=== PATIENT | female | born 1940 | race Caucasian/White ===

== ENCOUNTER 2020-11-29 12:57 | Emergency (ER) | payer MEDICARE, SELFPAY ==
--- NOTE | ~2020-11-29 | XR_ITS ---
EXAMINATION: XR KNEE, LEFT CLINICAL INFORMATION: Left knee pain. COMPARISON: None TECHNIQUE: AP, oblique, contralateral oblique, crosstable lateral radiographs of the left knee. FINDINGS: Medial compartment demonstrates mild joint space narrowing and subchondral sclerosis of the tibia and femoral condyle. The lateral compartment demonstrates mild osteophytosis of the femoral condyle. The patellofemoral compartment demonstrates mild osteophytosis. No joint effusion is visualized. No discrete popliteal fossa fluid collection is noted. No fractures or suspicious osseous lesions visualized. XR/XR knee LT 3V IMPRESSION: 1. Mild - moderate tricompartmental osteoarthritis.
--- NOTE | ~2020-11-29 | XR_ITS ---
EXAMINATION: XR HIP WITH AP PELVIS, LEFT XR FEMUR, LEFT XR TIBIA AND FIBULA, LEFT CLINICAL INFORMATION: Pain in the left lower extremity. COMPARISON: Left knee x-ray performed earlier on the same day. TECHNIQUE: AP view of the pelvis and AP and frog lateral views of the left hip. AP and lateral views of the left femur. AP and lateral views of the left tibia and fibula. FINDINGS: The left hip joint, knee joint and ankle joint alignments are maintained. There is no evidence of suspicious lytic or blastic osseous lesion. Normal osseous mineralization. Right hip joint alignment is maintained. Mild osteoarthritic changes at the left hip. [id number] osteoarthritic changes are noted at the right hip joint with narrowing of the joint space mild subarticular sclerosis and marginal osteophytic ranges at the lateral margin of the acetabulum. There is probable mild subarticular cystic changes seen in the right acetabulum laterally. There is mild deformity of the left side of the pubic symphysis, recommend correlation with history of prior trauma in the region. Symphysis previously intact. Limited evaluation of the sacroiliac joints is unremarkable. Degenerative changes are noted in the lower lumbar spine. Mild osteoarthritic changes in the left knee are better seen on the dedicated left knee radiographs performed earlier on the same day. No evidence of suprapatellar joint effusion. Faint vascular calcifications are noted. No significant degenerative or erosive changes are noted at the right ankle joint. XR/XR tibia fibula LT 2V IMPRESSION: 1. Osteoarthritic changes of the bilateral hips, right greater than left. 2. Mild osteoarthritic changes in the right knee, greater in the medial compartment. 3. No significant degenerative changes are noted in the right ankle. 4. No acute or suspicious osseous abnormality is noted in the pelvis, left hip, left femur and left tibia and fibula.
--- NOTE | ~2020-11-29 | US_ITS ---
EXAMINATION: US VENOUS ULTRASOUND WITH DOPPLER LOWER EXTREMITY, LEFT CLINICAL INFORMATION: Posterior left leg pain COMPARISON: None TECHNIQUE: Ultrasound of the deep veins is performed from the hip to the calf with compression sonography and color and pulse Doppler assessment. Spectral analysis with color-flow imaging is performed. FINDINGS: There is normal venous compression and respiratory variation and augmented flow. The visualized common femoral vein, superficial femoral vein, profunda femoral vein, and the trifurcation region shows no evidence of deep venous thrombosis. The popliteal vein demonstrated respiratory variation and augmented flow, however the patient could not tolerate the pressure needed to compress the vein. There is no significant popliteal fossa cyst. If the patient's symptoms persist, followup ultrasound in 5 days 7 days might be of value to exclude proximal propagation from a non-visualized calf vein. US/US venous duplex LE LT IMPRESSION: No DVT demonstrated in the left lower extremity. The patient could not tolerate compression of the popliteal vein, however color Doppler and grayscale ultrasound did not demonstrate any evidence of clot and respiratory variation was preserved. This argues strongly against the presence of DVT at the popliteal vein.
[2020-11-29 13:38] VITALS: BP 162/97; PULSE 93; RESP 18; TEMP 36.5; O2SAT 97; BMI 31.8
--- NOTE | 2020-11-29 14:09 | ED.EXTPRO ---
HPI - Extremity Problem General Chief complaint: Extremity Problem Stated complaint: cant bear weight on legs Time Seen by Provider: 11/29/20 14:09 History of Present Illness HPI Narrative: Patient complains of left leg pain worst in the knee and the back of the knee as well which started today when she attempted to sit down in a chair and felt a sudden sharp pain She has been using crutches for a couple of days as her knee and leg have been hurting but not to this extent, no numbness no weakness no tingling Related Data Previous Rx's Medication Instructions Recorded acetaminophen 1,000 mg PO QID PRN #30 tab 11/29/20 oxycodone 2.5 mg PO Q6H PRN #10 tab 11/29/20 Allergies Allergy/AdvReac Type Severity Reaction Status Date / Time No Known Allergies Allergy Unverified 03/05/20 15:53 [No Known Allergies*] Review of Systems Review of Systems: Positive for left leg pain Negatives are no fever or chills no dizziness no weakness no fainting no feeling faint no headache no neck pain no back pain no numbness weakness or tingling no skin rash no chest pain no shortness of breath Yes all other systems are reviewed and are negative PMFSH Past Medical History Source: nursing notes reviewed Medical History (Updated 11/30/20 @ 00:01 by Background Mel) Diabetes GERD (gastroesophageal reflux disease) HTN (hypertension) Hypothyroid Physical Exam Vital Signs: Vital Signs: Last Vital Signs Temp 99.0 F 11/29/20 17:13 Pulse 78 11/29/20 17:13 Resp 16 11/29/20 17:13 BP 153/80 H 11/29/20 17:13 Pulse Ox 97 11/29/20 17:13 Body Mass Index 31.8 General appearance no acute distress Head is normocephalic atraumatic Neck is supple Respiratory no distress Chest clear to auscultation bilaterally Chest wall nontender no pleuritic pain Heart no murmur Abdomen soft nontender Extremities the left leg was normal in color no swelling no redness no warmth no wound The knee had posterior tenderness and bilateral joint tenderness, there was no effusion there was no redness no warmth There was also tenderness without redness or swelling behind the knee and in the calf The leg was neurovascular intact Skin no rashes Neuro no gross motor sensory deficits Course Course Course Narrative: Left knee x-ray showed osteoarthritis, hip x-ray showed bilateral hip osteoarthritis, no evidence of malignancy or fracture Ultrasound did not show any clot and patient was discharged to follow with orthopedist Discharge Plan Discharge Clinical Impression: Left knee sprain Patient Disposition: Home, Self-Care Additional Instructions: You can use Tylenol and if really needed you can try the oxycodone which is a narcotic which can cause dizziness and drowsiness Follow with primary doctor and orthopedist Return any time any concerns Ultrasound done today did not reveal any blood clot, x-rays done today did not reveal any broken bone or any emergent finding Prescriptions: New oxycodone 5 mg tablet 2.5 mg PO Q6H PRN (Reason: pain) Qty: 10 RF: 0 acetaminophen 500 mg tablet 1,000 mg PO QID PRN (Reason: pain) Qty: 30 RF: 0 Referrals: Jonatan Don MD [Physician] - 2 days (Left knee injury) Interventions: ED Discharge Assessment Last Done: 11/29/20 18:44 Discharge Date/Time: 11/29/20 18:45
--- NOTE | 2020-11-29 14:35 | PC.NURSE ---
PT MOVED FROM A RECLINER TO A STRETCHER. PT UNABLE TO BEAR ANY WEIGHT ON LEFT LEG DUE TO PAIN. PT ASSISTED BY 2 RNS AND REPOSITIONED IN THE BED.
--- NOTE | 2020-11-29 15:46 | PC.NURSE ---
pt assisted with bedpan, voided 300 ml dark yellow urine.
[2020-11-29 17:13] VITALS: BP 153/80; PULSE 78; RESP 16; TEMP 37.2; O2SAT 97
--- NOTE | 2020-11-29 17:55 | PC.NURSE ---
KNEE SPLINT APPLIED TO L LEG.
== END 2020-11-29 18:45 | disposition home or self-care (01) ==
PROVIDERS: Emergency Provider Emergency Medicine Emergency Medical Services; PCP Internal Medicine
DX: S93.402A Sprain of unspecified ligament of left ankle, initial encounter (principal); M79.605 Pain in left leg; M16.0 Bilateral primary osteoarthritis of hip; M17.12 Unilateral primary osteoarthritis, left knee; E11.9 Type 2 diabetes mellitus without complications; I10 Essential (primary) hypertension; X58.XXXA Exposure to other specified factors, initial encounter; Y93.9 Activity, unspecified; Y92.9 Unspecified place or not applicable; Y99.9 Unspecified external cause status
CPT/HCPCS: 73502; 73552; 73562; 73590; 93971; 99284

== ENCOUNTER 2021-01-19 11:00 | Outpatient (RCR) | payer MEDICARE, SELFPAY | END 2021-03-17 10:28 | disposition home or self-care (01) | LOC: HO.PT 11:00 | PROVIDERS: PCP Internal Medicine; Visit Provider Physician Assistant | DX: M54.5 Low back pain (principal) | CPT/HCPCS: 97110; 97161 ==

== ENCOUNTER 2021-01-19 12:08 | Emergency (ER) | payer MEDICARE, SELFPAY ==
--- NOTE | ~2021-01-19 | XR_ITS ---
EXAMINATION: XR CHEST CLINICAL INFORMATION: Dizziness COMPARISON: Chest radiographs 01/29/2017, 06/15/2006 TECHNIQUE: Portable upright AP view of the chest was obtained. FINDINGS: Some fine linear scarring is seen at both lung bases similar to prior studies. There is also some fine clothing/linen artifact overlying the upper zones. There is no pneumothorax, airspace consolidation, or effusion. The heart is normal in size. The vascularity is normal. The hilar and mediastinal contours and visualized bony structures are unremarkable. XR/XR chest 1V IMPRESSION: Old fine bibasilar linear scarring. No acute intrathoracic disease.
--- NOTE | ~2021-01-19 | CT_ITS ---
EXAMINATION: CT ANGIOGRAM OF THE HEAD CT ANGIOGRAM OF THE NECK CLINICAL INFORMATION: Evaluate aneurysm seen on CT scan. COMPARISON: CT scan of the head earlier 09/05/2020. TECHNIQUE: Test bolus series followed by intravenous administration 70 mL of Omnipaque 350. Helical imaging was performed in the axial plane from the mediastinum to the skull vertex. A delayed CT scan of the head was obtained. The degree of stenosis is based off NASCET criteria. The data was processed at the ambulatory technologist workstation for generation of MIP images. Three-dimensional volume rendered reformatted images were also generated at an offline 3-D workstation. This CT examination was performed using dose optimization techniques as appropriate, variously including the following: *Automated exposure control *Adjustment of mA and/or kV according to patient size (this includes techniques or standardized protocols for targeted exams where dose is matched to indication/reason for exam; i.e. extremities or head) *Use of iterative reconstruction technique DLP: 1387 mGy-cm. FINDINGS: CT Head: There is a moderately intensely enhancing mass in the sellar region which extends into the suprasellar area which measures 1.2 x 1.2 x 1.7 cm in oblique AP, transverse and craniocaudal dimensions. There is equivocal impingement on the optic chiasm. It is most consistent with a pituitary adenoma. There is no evidence of acute intracranial hemorrhage or territorial infarction. No other abnormal mass-effect or midline shift is seen. Lucio to white matter differentiation is well preserved. No extra-axial fluid collections are identified. The ventricles and sulci are slightly commensurately prominent consistent with mild diffuse volume loss. There are scattered areas of low attenuation in the periventricular and subcortical white matter which are most consistent with chronic microvascular ischemic changes. There are no acute osseous findings. There is extensive hyperostosis frontalis interna. There have been bilateral lens extractions. There is moderate fluid at the right mastoid tip. The paranasal sinuses are well-aerated. CTA Neck: There is a classic configuration of the arch of the aorta. The great vessels of the neck are widely patent. There are atheromatous calcifications of the origin of the right subclavian artery, subclavian arteries are patent bilaterally. The common carotid arteries have normal caliber, but are slightly tortuous with a retropharyngeal course. There are atheromatous calcifications of bilateral the carotid bifurcations without significant stenosis. The internal carotid arteries in the neck bilaterally have uniform and normal caliber. The origins of both vertebral arteries are well seen and appear normal. Both vertebral arteries are widely patent and demonstrate good opacification throughout their cervical course. The vertebral arteries are codominant. Nonvascular: The visualized lung dxion appear clear. There are spondylitic and facet arthropathic changes in the cervical spine. There is no cervical lymphadenopathy. The thyroid gland appears normal. CTA Head: There are atheromatous calcifications of the cavernous internal carotid arteries, but the vessels are patent. The A1 segment of the left anterior cerebral artery is markedly thinner compared to the right but has uniform caliber. The A1 segment on the right appears normal. The A2 segments of both anterior cerebral arteries are patent. 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 The middle cerebral arteries bilaterally demonstrate normal caliber with no evidence of focal stenosis, aneurysm or vascular malformation. There is normal arborization of the middle cerebral artery branches. In the posterior circulation, the vertebral arteries are codominant. The vertebral arteries intradurally have normal caliber. The basilar artery appears normal. The posterior cerebral arteries have normal caliber. The venous sinuses opacify normally. CT/CT angio head neck IMPRESSION: CT head and neck: 1. There are no acute bleeds or infarcts. 2. There is a sellar and suprasellar mass as described above which is most consistent with pituitary adenoma. Recommend MRI scan of the brain with pituitary sequences for further assessment. 3. There is mild diffuse volume loss and there are chronic microvascular ischemic changes. CTA head and neck: 1. 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 2. The A1 segment of the left anterior cerebral artery is thinner compared to the right, likely a normal variant. 3. The posterior fossa vasculature appears normal. This critical result was discussed with JORGE Rosario by telephone on 01/19/2021 at 6:13 PM and it was ascertained that the content and urgency of the report was understood at the time of direct communication.
--- NOTE | ~2021-01-19 | CT_ITS ---
EXAMINATION: CT HEAD WITHOUT CONTRAST CLINICAL INFORMATION: Dizziness and hypertension COMPARISON: None TECHNIQUE: Contiguous axial imaging was performed from the skull base to vertex without intravenous administration of contrast. This CT examination was performed using dose optimization techniques as appropriate, variously including the following: *Automated exposure control *Adjustment of mA and/or kV according to patient size (this includes techniques or standardized protocols for targeted exams where dose is matched to indication/reason for exam; i.e. extremities or head) *Use of iterative reconstruction technique DLP: 614 mGy-cm FINDINGS: There is no evidence of an extra-axial collection. There is no evidence of intra-axial or extra-axial hemorrhage. There is a suprasellar soft tissue mass measuring approximately 1.2 cm. This is irregular in shape and heterogeneous in attenuation. It is uncertain whether this represents an aneurysm or represents suprasellar extension of a pituitary lesion. The ventricles and extra-axial CSF spaces are appropriate. No infarct is seen. No skull fracture is seen. There is soft tissue opacification of the right mastoid air cells. Left mastoid air cells, middle ears and visualized paranasal sinuses are clear. CT/CT head/brain wo con IMPRESSION: 1.2 cm heterogeneous irregularly-shaped supra-sellar mass. Differential would include an aneurysm and pituitary lesion. Follow-up CTA recommended. Soft tissue opacification of the right mastoid air cells. Findings were communicated to Paula Chavez by telephone on 01/19/2021 at 4:15 PM.
[2021-01-19 12:37] VITALS: BP 188/87; PULSE 72; RESP 20; TEMP 36.7; O2SAT 98; BMI 31.8
--- NOTE | 2021-01-19 14:24 | ECG_ITS ---
Test Reason : DIZZINESS Blood Pressure : / mmHG Vent. Rate : 076 BPM Atrial Rate : 076 BPM P-R Int : 234 ms QRS Dur : 094 ms QT Int : 420 ms P-R-T Axes : 063 026 033 degrees QTc Int : 472 ms Sinus rhythm with 1st degree A-V block Incomplete right bundle branch block Borderline ECG When compared with ECG of 29-JAN-2017 02:45, No significant change was found Referred By: Generic ED Physician Electronically Signed By:Venkat Smith
[2021-01-19] MEDS: 0.9 % Sodium Chloride 1,000 ML 999 ML IVCONT (15:15)
[2021-01-19 15:20] LABS: MANUAL DIFF FLAG NO
[2021-01-19 15:26] LABS: Basophils Absolute Auto 0.1 X10*3/uL (0.0-0.2); Basophils Percent Auto 0.8 % (0-2); Eosinophils Absolute Auto 0.2 X10*3/uL (0.0-0.4); Eosinophils Percent Auto 2.4 % (0-4); Hematocrit 42.5 % (37-47); Hemoglobin 13.8 g/dl (12.0-16.0); Imm Gran Abs Auto 0.02 X10*3/uL (0.00-0.03); Imm Gran Pct Auto 0.3 % (0.0-0.4); Lymphocytes Absolute Auto 2.4 X10*3/uL (1.2-4.9); Lymphocytes Percent Auto 31.6 % (20-40); Mean Corpuscular HGB Conc 32.5 g/dl (31.0-35.0); Mean Corpuscular Volume 86.2 fL (80-98); Mean Platelet Volume 9.9 fL (9.4-12.3); Monocytes Absolute Auto 0.6 X10*3/uL (0.1-1.2); Monocytes Percent Auto 8.4 % (2-11); Neutrophils Absolute Auto 4.3 X10*3/uL (2.0-8.3); Neutrophils Percent Auto 56.5 % (45-73); Platelet Count 309 X10*3/uL (160-400); Red Blood Count 4.93 X10*6/uL (4.20-5.50); Red Cell Distribution Width 12.8 % (11.0-16.0); White Blood Count 7.5 X10*3/uL (4.8-10.8)
[2021-01-19 15:35] LABS: Glucose Urine UA NEG (NEG); Leukocyte Esterase Urine 3+ (NEG); Nitrite Urine NEG (NEG); PH 5.5 (5.0-8.0); Specific Gravity - Urine 1.015 (1.005-1.025); UACC Culture Trigger YES; Urine Blood 3+ (NEG); Urine Ketones NEG (NEG); Urine Protein NEG (NEG-TRACE)
[2021-01-19 15:37] LABS: Appearance Urine HAZY; Color Urine YELLOW
[2021-01-19 15:48] LABS: Bacteria Urine 1+ /LPF; Squamous Epithelial Cell Urine 1+ /LPF; WBC Urine 30-49 /HPF (0-4)
[2021-01-19 15:49] LABS: Alanine Aminotransferase 35 U/L (0-31); Albumin Level 4.6 g/dL (3.5-5.0); Alkaline Phosphatase 108 U/L (39-117); Anion Gap 16 (12-20); Aspartate Amino Transferase 39 U/L (5-31); Bilirubin Direct 0.2 mg/dL (0.0-0.5); Bilirubin Total 0.6 mg/dL (0.0-1.0); Blood Urea Nitrogen 14 mg/dL (9-16); Calcium 9.7 mg/dL (8.4-10.2); Carbon Dioxide 25 mmol/L (22-29); Chloride 103 mmol/L (96-108); Creatinine Clr Calc Pharmacy 52.7; Estimated Glomerular Filt Rate > 60; Glucose Random 114 mg/dL (60-115); Magnesium 1.8 mg/dL (1.6-2.6); Sodium 140 mmol/L (135-145); Total Protein 7.7 g/dL (6.5-8.0)
[2021-01-19 15:52] LABS: Troponin-I High Sensitivity 4.9 ng/L (<3.5-17.0)
--- NOTE | 2021-01-19 16:15 | ED_ITS ---
HPI - Dizziness General Chief Complaint: Dizziness <JORGE Sofia Last Filed: 01/19/21 18:07> Stated Complaint: elevated bp <JORGE Sofia Last Filed: 01/19/21 18:07> Time Seen by Provider: 01/19/21 14:23 <JORGE Sofia Last Filed: 01/19/21 18:07> Source: patient <JORGE Sofia Last Filed: 01/19/21 18:07> Mode of arrival: ambulatory <JORGE Sofia Last Filed: 01/19/21 18:07> History of Present Illness HPI Narrative: 80-year-old female with a past medical history of diabetes, GERD, HTN, hypothyroid, presenting to the ED from physical therapy for sudden onset dizziness and noted hypertension 201/104 while in physical therapy [employer]. Describes dizziness as feeling off , not room spinning or presyncopal, with associated nausea, blurry vision, mild headache and tingling in RUE. Admits symptoms worse with position changes/head movement, improving at present. Denies taking anticoagulation. Denies vomiting, CP/SOB, abdominal pain, focal weakness, numbness, visual loss <JORGE Sofia Last Filed: 01/19/21 18:07> MD elicited complaint: dizziness and disequilibrium <JORGE Sofia Last Filed: 01/19/21 18:07> Related Data Home Medications: Previous Rx's Medication Instructions Recorded acetaminophen 500 mg tablet 1,000 mg PO QID PRN #30 tab 11/29/20 oxycodone 5 mg tablet 2.5 mg PO Q6H PRN #10 tab 11/29/20 <JORGE Sofia Last Filed: 01/19/21 18:07> Allergies/Adverse Reactions: Allergies Allergy/AdvReac Type Severity Reaction Status Date / Time No Known Allergies Allergy Unverified 03/05/20 15:53 [No Known Allergies*] <JORGE Sofia Last Filed: 01/19/21 18:07> Review of Systems Review of Systems: Constitutional: No Fever, No Chills, No Fatigue, No Malaise ENT/Mouth: No Ear Pain, No sore throat, No Rhinorrhea Eyes: No Eye Pain, No Swelling, No Redness, No Discharge, + Vision Changes Cardiovascular: No Chest Pain, No SOB, No Palpitations Respiratory: No Cough, No Sputum, No Dyspnea Gastrointestinal: + Nausea, No Vomiting, No Diarrhea, No Abdominal pain Genitourinary: No irregular bleeding, No Dysuria, No Urinary Frequency, No Hematuria, No Flank Pain Musculoskeletal: No joint pain, No Myalgias, No Joint Swelling Skin: No Skin Lesions, No rash Neuro: No Weakness, + Numbness, + Paresthesias, No Loss of Consciousness, + Dizziness, + Headache <JORGE Sofia - Last Filed: 01/19/21 18:07> Yes all other systems are reviewed and are negative <JORGE Sofia - Last Filed: 01/19/21 18:07> Neurologic: Denies Abnormal speech present <JORGE Sofia - Last Filed: 01/19/21 18:07> [facility] Past Medical History Attestation statement: The following information was validated with the patient. <JORGE Sofia - Last Filed: 01/19/21 18:07> Medical History: Medical History (Updated 01/19/21 @ 19:02 by Katey Nguyen PA-C) Diabetes GERD (gastroesophageal reflux disease) HTN (hypertension) Hypothyroid <JORGE Sofia Last Filed: 01/19/21 18:07> Social History Social History: Social History Advance Directives: Yes Advance Directives Information Provided: No Advance Directives on File: No <JORGE Sofia Last Filed: 01/19/21 18:07> Physical Exam Vital Signs: Vital Signs: Last Vital Signs Temp 98.1 F 01/19/21 12:37 Pulse 110 H 01/19/21 19:01 Resp 18 01/19/21 19:01 BP 165/85 H 01/19/21 19:01 Pulse Ox 98 01/19/21 19:01 Body Mass Index 31.8 <JORGE Sofia - Last Filed: 01/19/21 18:07> Vital Signs: Last Vital Signs Temp 98.1 F 01/19/21 12:37 Pulse 110 H 01/19/21 19:01 Resp 18 01/19/21 19:01 BP 165/85 H 01/19/21 19:01 Pulse Ox 98 01/19/21 19:01 Body Mass Index 31.8 <BESSY Rosario - Last Filed: 01/19/21 19:38> Const: General: cooperative, healthy appearing, well developed, alert and awake <JORGE Sofia - Last Filed: 01/19/21 18:07> Orientation/consciousness: patient oriented x3 <Paula Chavez PA - Last Filed: 01/19/21 18:07> Limitations: no limitations <JORGE Sofia - Last Filed: 01/19/21 18:07> HENMT: Head: Yes normal to inspection and Yes atraumatic <Paula Chavez PA - Last Filed: 01/19/21 18:07> Ears: hearing grossly normal bilaterally <JORGE Sofia - Last Filed: 01/19/21 18:07> General nose exam: Normal external nose present <Paula Chavez PA - Last Filed: 01/19/21 18:07> Face and sinus: Yes normal facial exam <JORGE Sofia - Last Filed: 01/19/21 18:07> Mouth: Normal oral and palatal mucosa present <Paula Chavez PA - Last Filed: 01/19/21 18:07> Throat: Yes posterior oropharynx normal <JORGE Sofia - Last Filed: 01/19/21 18:07> Eyes: General: appearance normal, both eyes and all related structures <Paula Chavez PA - Last Filed: 01/19/21 18:07> Pupils: Equal, round and reactive pupils present <JORGE Sofia - Last Filed: 01/19/21 18:07> EOM: EOMs intact bilaterally <Paula Chavez PA - Last Filed: 01/19/21 18:07> Neck: Neck: Yes normal visual inspection and Yes no meningeal signs <JORGE Sofia - Last Filed: 01/19/21 18:07> Resp: Effort & Inspection: normal respiratory effort and no respiratory distress <Paula Chaevz PA - Last Filed: 01/19/21 18:07> Cardio: Rate: regular rate <Paula Chavez PA - Last Filed: 01/19/21 18:07> GI: Inspection: Yes normal to inspection <Paula Chavez PA - Last Filed: 01/19/21 18:07> Palpation (GI): Soft to palpation, nontender and no guarding <Paula Chavez PA - Last Filed: 01/19/21 18:07> Skin: Rashes: no rashes <Paula Chavez PA - Last Filed: 01/19/21 18:07> Wounds: no wounds <Paula Chavez PA - Last Filed: 01/19/21 18:07> Neuro: General: patient oriented x3, tone normal, moves all extremities, no meningeal signs, no focal motor deficits and CN's II-XI intact bilaterally <Paula Chavez PA - Last Filed: 01/19/21 18:07> Cranial nerves: Yes CN's II-XII intact bilaterally and Yes Equal, round and reactive pupils present <Paula Chavez PA - Last Filed: 01/19/21 18:07> Cognition (Neuro): normal cognition <Paula Chavez PA - Last Filed: 01/19/21 18:07> Speech: No Abnormal speech present <Paula Chavez PA - Last Filed: 01/19/21 18:07> Gait exam (Neuro): Normal gait present <Paula Chavez PA - Last Filed: 01/19/21 18:07> Motor exam (neuro): 5/5 motor strength present throughout, Pronator motor functi on not present and no tremor noted <Paula Chavez PA - Last Filed: 01/19/21 18:07> Coordination: [id number] test normal <Paula Chavez AK - Last Filed: 01/19/21 18:07> Romberg Test: Negative <Paula Chavez PA - Last Filed: 01/19/21 18:07> Extrem: General: Yes normal to inspection <Paula Montillaajmes PA - Last Filed: 01/19/21 18:07> Course Course Course Narrative: -no leukocytosis, H&H stable, troponin 5.9 > will obtain 3 hour repeat -AST/ALT mildly elevated -UA infected >> IV Ceftriaxone ordered -1617--received a call from Radiology large aneurysm seen on CT will obtain CTA for further evaluation CT head/brain wo con IMPRESSION: 1.2 cm heterogeneous irregularly-shaped supra-sellar mass. Differential would include an aneurysm and pituitary lesion. Follow-up CTA recommended. Soft tissue opacification of the right mastoid air cells. -1800--ED care transferred to [facility] pending CTA results and neurology consult <JORGE Sofia - Last Filed: 01/19/21 18:07> -no leukocytosis, H&H stable, troponin 5.9 > will obtain 3 hour repeat -AST/ALT mildly elevated -UA infected >> IV Ceftriaxone ordered -1617--received a call from Radiology large aneurysm seen on CT will obtain CTA for further evaluation CT head/brain wo con IMPRESSION: 1.2 cm heterogeneous irregularly-shaped supra-sellar mass. Differential would include an aneurysm and pituitary lesion. Follow-up CTA recommended. Soft tissue opacification of the right mastoid air cells. -1800--ED care transferred to [facility] pending CTA results and neurology consult CTA head and neck: 1. 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 2. The A1 segment of the left anterior cerebral artery is thinner compared to the right, likely a normal variant. 3. The posterior fossa vasculature appears normal. ? This critical result was discussed with JORGE Rosario by telephone on 01/19/2021 at 6:13 PM and it was ascertained that the content and urgency of the report was understood at the time of direct communication. 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 Discussed with Dr. Worrell, will refer outpt [facility] as patient's vital signs are stable, she denies any headache, vision changes, blurriness . Her blood pressure is a bit elevated at 2 0 7/100, will get her blood pressure down and likely discharge. <Katey Nguyen PA-C - Last Filed: 01/19/21 19:38> Time: 18:30 <Katey Nguyen PA-C - Last Filed: 01/19/21 19:38> Reevaluation #2: [facility] neurosurgery stated they will see patient as outpatient unless we want to transfer, that is the only way I could speak with the on-call doctor. As patient is stable with no acute signs of either issue, she will follow-up tomorrow. Discussed this at length with the patient and her , they both understand call in the morning for an appointment. Dr Worrell aware and agrees with plan. Gave the patient explicit red flag warning signs on when to call 911 or return to the emergency department, recommended going straight to [facility]. <Katey Nguyen PA-C - Last Filed: 01/19/21 19:38> Time: 17:00 <Katey Nguyen PA-C - Last Filed: 01/19/21 19:38> MDM - Dizziness MDM Narrative Medical decision making narrative: 80-year-old female with a past medical history of diabetes, GERD, HTN, hypothyroid, presenting to the ED from physical therapy for sudden onset dizziness and noted hypertension 201/104 while in physical therapy [employer]. Describes dizziness as feeling off , not room spinning or presyncopal, with associated nausea, blurry vision, mild headache and tingling in RUE. On exam hypertensive, NAD/nontoxic, no focal neuro deficits, concern for hypertensive urgency vs ?TIA vs metabolic abnormalities vs ACS. Lower concern for CVA Plan: EKG, labs, UA, CXR, head CT, re-evaluate <JORGE Sofia Last Filed: 01/19/21 18:07> Medical Records Attestation: I reviewed the patient's medical records. <JORGE Sofia Last Filed: 01/19/21 18:07> Lab Data Attestation: I reviewed the patient's lab results. <JORGE Sofia Last Filed: 01/19/21 18:07> Result diagrams: : 01/19/21 15:13 01/19/21 15:13 <JORGE Sofia Last Filed: 01/19/21 18:07> Labs: Lab Results 01/19/21 01/19/21 01/19/21 Range/Units 15:13 15:13 15:13 WBC 7.5 (4.8-10.8) X10*3/uL RBC 4.93 (4.20-5.50) X10*6/uL Hgb 13.8 (12.0-16.0) g/dl Hct 42.5 (37-47) % MCV 86.2 (80-98) fL MCH 28.0 (27.0-33.0) pg MCHC 32.5 (31.0-35.0) g/dl RDW 12.8 (11.0-16.0) % Plt Count 309 (160-400) X10*3/uL MPV 9.9 (9.4-12.3) fL Immature Gran % (Auto) 0.3 (0.0-0.4) % Neut % (Auto) 56.5 (45-73) % Lymph % (Auto) 31.6 (20-40) % O'Brien % (Auto) 8.4 (2-11) % Eos % (Auto) 2.4 (0-4) % Baso % (Auto) 0.8 (0-2) % Lymph # (Auto) 2.4 (1.2-4.9) X10*3/uL O'Brien # (Auto) 0.6 (0.1-1.2) X10*3/uL Eos # (Auto) 0.2 (0.0-0.4) X10*3/uL Baso # (Auto) 0.1 (0.0-0.2) X10*3/uL Abs Immat Gran (auto) 0.02 (0.00-0.03) X10*3/uL Absolute Neuts (auto) 4.3 (2.0-8.3) X10*3/uL Absolute Nucleated RBC 0.000 (0.0-0.012) X10*3/uL Nucleated RBC % (auto) 0.0 (0.0-0.2) /100WBC PT (9.9-13.0) SEC INR (0.9-1.1) APTT (24.1-38.0) SEC Sodium 140 (135-145) mmol/L Potassium 4.0 (3.3-5.1) mmol/L Chloride 103 (96-108) mmol/L Carbon Dioxide 25 (22-29) mmol/L Anion Gap 16 (12-20) BUN 14 (9-16) mg/dL Creatinine 0.89 (0.5-1.4) mg/dL Estim Creat Clear Calc 52.7 Estimated GFR > 60 Random Glucose 114 (60-115) mg/dL Calcium 9.7 (8.4-10.2) mg/dL Magnesium 1.8 (1.6-2.6) mg/dL Total Bilirubin 0.6 (0.0-1.0) mg/dL Direct Bilirubin 0.2 (0.0-0.5) mg/dL AST 39 H (5-31) U/L ALT 35 H (0-31) U/L Alkaline Phosphatase 108 (39-117) U/L Troponin I High Sens 4.9 (<3.5-17.0) ng/L Total Protein 7.7 (6.5-8.0) g/dL Albumin 4.6 (3.5-5.0) g/dL Urine Color Urine Appearance Urine pH (5.0-8.0) Ur Specific [place] (1.005-1.025) Urine Protein (NEG-TRACE) MG/DL Urine Glucose (UA) (NEG) MG/DL Urine Ketones (NEG) MG/DL Urine Blood (NEG) Urine Nitrite (NEG) Ur Leukocyte Esterase (NEG) Urine RBC (0) /HPF Urine WBC (0-4) /HPF Ur Squamous Epith Cells /LPF Urine Bacteria /LPF 01/19/21 01/19/21 01/19/21 Range/Units 15:13 17:32 18:24 WBC (4.8-10.8) X10*3/uL RBC (4.20-5.50) X10*6/uL Hgb (12.0-16.0) g/dl Hct (37-47) % MCV (80-98) fL MCH (27.0-33.0) pg MCHC (31.0-35.0) g/dl RDW (11.0-16.0) % Plt Count (160-400) X10*3/uL MPV (9.4-12.3) fL Immature Gran % (Auto) (0.0-0.4) % Neut % (Auto) (45-73) % Lymph % (Auto) (20-40) % O'Brien % (Auto) (2-11) % Eos % (Auto) (0-4) % Baso % (Auto) (0-2) % Lymph # (Auto) (1.2-4.9) X10*3/uL O'Brien # (Auto) (0.1-1.2) X10*3/uL Eos # (Auto) (0.0-0.4) X10*3/uL Baso # (Auto) (0.0-0.2) X10*3/uL Abs Immat Gran (auto) (0.00-0.03) X10*3/uL Absolute Neuts (auto) (2.0-8.3) X10*3/uL Absolute Nucleated RBC (0.0-0.012) X10*3/uL Nucleated RBC % (auto) (0.0-0.2) /100WBC PT 12.4 (9.9-13.0) SEC INR 1.1 (0.9-1.1) APTT 35.7 (24.1-38.0) SEC Sodium (135-145) mmol/L Potassium (3.3-5.1) mmol/L Chloride (96-108) mmol/L Carbon Dioxide (22-29) mmol/L Anion Gap (12-20) BUN (9-16) mg/dL Creatinine (0.5-1.4) mg/dL Estim Creat Clear Calc Estimated GFR Random Glucose (60-115) mg/dL Calcium (8.4-10.2) mg/dL Magnesium (1.6-2.6) mg/dL Total Bilirubin (0.0-1.0) mg/dL Direct Bilirubin (0.0-0.5) mg/dL AST (5-31) U/L ALT (0-31) U/L Alkaline Phosphatase (39-117) U/L Troponin I High Sens 5.0 (<3.5-17.0) ng/L Total Protein (6.5-8.0) g/dL Albumin (3.5-5.0) g/dL Urine Color YELLOW Urine Appearance HAZY Urine pH 5.5 (5.0-8.0) Ur Specific [place] 1.015 (1.005-1.025) Urine Protein NEG (NEG-TRACE) MG/DL Urine Glucose (UA) NEG (NEG) MG/DL Urine Ketones NEG (NEG) MG/DL Urine Blood 3+ H (NEG) Urine Nitrite NEG (NEG) Ur Leukocyte Esterase 3+ H (NEG) Urine RBC 5-9 H (0) /HPF Urine WBC 30-49 H (0-4) /HPF Ur Squamous Epith Cells 1+ /LPF Urine Bacteria 1+ /LPF <JORGE Sofia - Last Filed: 01/19/21 18:07> Lab Results 01/19/21 01/19/21 01/19/21 Range/Units 15:13 15:13 15:13 WBC 7.5 (4.8-10.8) X10*3/uL RBC 4.93 (4.20-5.50) X10*6/uL Hgb 13.8 (12.0-16.0) g/dl Hct 42.5 (37-47) % MCV 86.2 (80-98) fL MCH 28.0 (27.0-33.0) pg MCHC 32.5 (31.0-35.0) g/dl RDW 12.8 (11.0-16.0) % Plt Count 309 (160-400) X10*3/uL MPV 9.9 (9.4-12.3) fL Immature Gran % (Auto) 0.3 (0.0-0.4) % Neut % (Auto) 56.5 (45-73) % Lymph % (Auto) 31.6 (20-40) % O'Brien % (Auto) 8.4 (2-11) % Eos % (Auto) 2.4 (0-4) % Baso % (Auto) 0.8 (0-2) % Lymph # (Auto) 2.4 (1.2-4.9) X10*3/uL O'Brien # (Auto) 0.6 (0.1-1.2) X10*3/uL Eos # (Auto) 0.2 (0.0-0.4) X10*3/uL Baso # (Auto) 0.1 (0.0-0.2) X10*3/uL Abs Immat Gran (auto) 0.02 (0.00-0.03) X10*3/uL Absolute Neuts (auto) 4.3 (2.0-8.3) X10*3/uL Absolute Nucleated RBC 0.000 (0.0-0.012) X10*3/uL Nucleated RBC % (auto) 0.0 (0.0-0.2) /100WBC PT (9.9-13.0) SEC INR (0.9-1.1) APTT (24.1-38.0) SEC Sodium 140 (135-145) mmol/L Potassium 4.0 (3.3-5.1) mmol/L Chloride 103 (96-108) mmol/L Carbon Dioxide 25 (22-29) mmol/L Anion Gap 16 (12-20) BUN 14 (9-16) mg/dL Creatinine 0.89 (0.5-1.4) mg/dL Estim Creat Clear Calc 52.7 Estimated GFR > 60 Random Glucose 114 (60-115) mg/dL Calcium 9.7 (8.4-10.2) mg/dL Magnesium 1.8 (1.6-2.6) mg/dL Total Bilirubin 0.6 (0.0-1.0) mg/dL Direct Bilirubin 0.2 (0.0-0.5) mg/dL AST 39 H (5-31) U/L ALT 35 H (0-31) U/L Alkaline Phosphatase 108 (39-117) U/L Troponin I High Sens 4.9 (<3.5-17.0) ng/L Total Protein 7.7 (6.5-8.0) g/dL Albumin 4.6 (3.5-5.0) g/dL Urine Color Urine Appearance Urine pH (5.0-8.0) Ur Specific [place] (1.005-1.025) Urine Protein (NEG-TRACE) MG/DL Urine Glucose (UA) (NEG) MG/DL Urine Ketones (NEG) MG/DL Urine Blood (NEG) Urine Nitrite (NEG) Ur Leukocyte Esterase (NEG) Urine RBC (0) /HPF Urine WBC (0-4) /HPF Ur Squamous Epith Cells /LPF Urine Bacteria /LPF 01/19/21 01/19/21 01/19/21 Range/Units 15:13 17:32 18:24 WBC (4.8-10.8) X10*3/uL RBC (4.20-5.50) X10*6/uL Hgb (12.0-16.0) g/dl Hct (37-47) % MCV (80-98) fL MCH (27.0-33.0) pg MCHC (31.0-35.0) g/dl RDW (11.0-16.0) % Plt Count (160-400) X10*3/uL MPV (9.4-12.3) fL Immature Gran % (Auto) (0.0-0.4) % Neut % (Auto) (45-73) % Lymph % (Auto) (20-40) % O'Brien % (Auto) (2-11) % Eos % (Auto) (0-4) % Baso % (Auto) (0-2) % Lymph # (Auto) (1.2-4.9) X10*3/uL O'Brien # (Auto) (0.1-1.2) X10*3/uL Eos # (Auto) (0.0-0.4) X10*3/uL Baso # (Auto) (0.0-0.2) X10*3/uL Abs Immat Gran (auto) (0.00-0.03) X10*3/uL Absolute Neuts (auto) (2.0-8.3) X10*3/uL Absolute Nucleated RBC (0.0-0.012) X10*3/uL Nucleated RBC % (auto) (0.0-0.2) /100WBC PT 12.4 (9.9-13.0) SEC INR 1.1 (0.9-1.1) APTT 35.7 (24.1-38.0) SEC Sodium (135-145) mmol/L Potassium (3.3-5.1) mmol/L Chloride (96-108) mmol/L Carbon Dioxide (22-29) mmol/L Anion Gap (12-20) BUN (9-16) mg/dL Creatinine (0.5-1.4) mg/dL Estim Creat Clear Calc Estimated GFR Random Glucose (60-115) mg/dL Calcium (8.4-10.2) mg/dL Magnesium (1.6-2.6) mg/dL Total Bilirubin (0.0-1.0) mg/dL Direct Bilirubin (0.0-0.5) mg/dL AST (5-31) U/L ALT (0-31) U/L Alkaline Phosphatase (39-117) U/L Troponin I High Sens 5.0 (<3.5-17.0) ng/L Total Protein (6.5-8.0) g/dL Albumin (3.5-5.0) g/dL Urine Color YELLOW Urine Appearance HAZY Urine pH 5.5 (5.0-8.0) Ur Specific [place] 1.015 (1.005-1.025) Urine Protein NEG (NEG-TRACE) MG/DL Urine Glucose (UA) NEG (NEG) MG/DL Urine Ketones NEG (NEG) MG/DL Urine Blood 3+ H (NEG) Urine Nitrite NEG (NEG) Ur Leukocyte Esterase 3+ H (NEG) Urine RBC 5-9 H (0) /HPF Urine WBC 30-49 H (0-4) /HPF Ur Squamous Epith Cells 1+ /LPF Urine Bacteria 1+ /LPF <Katey Nguyen PA-C - Last Filed: 01/19/21 19:38> Discharge Plan Discharge Clinical Impression: Adenoma of pituitary, Aneurysm, Elevated blood pressure reading with diagnosis of hypertension <JORGE Sofia Last Filed: 01/19/21 18:07> Patient Disposition: Home, Self-Care <JORGE Sofia Last Filed: 01/19/21 18:07> Instructions: Pituitary Adenoma (ED), Hypertension (ED) <JORGE Sofia Last Filed: 01/19/21 18:07> Additional Instructions: I have called [facility] for you, they are aware of your CT scan and diagnosis. Please be sure to call tomorrow to make a follow-up appointment, I have provided the information below for you. In the meanwhile, if you have changes in your vision or experience ?the worst headache of your life ?, or any other concerning changes, please go straight to the emergency department or call 911. Also, please be sure to citrus picker the new medication your PCP prescribed you to keep her blood pressure inject because it was elevated during her stay in the ED today. <JORGE Sofia Last Filed: 01/19/21 18:07> Prescriptions: No Action oxycodone 5 mg tablet 2.5 mg PO Q6H PRN (Reason: pain) Qty: 10 RF: 0 acetaminophen 500 mg tablet 1,000 mg PO QID PRN (Reason: pain) Qty: 30 RF: 0 <JORGE Sofia Last Filed: 01/19/21 18:07> Referrals: [facility] [Provider Group] - 1 day (follow up for pituitary adenoma and aneurysm 8am-5pm Monday-Monday) <JORGE Sofia - Last Filed: 01/19/21 18:07> Interventions: ED Discharge Assessment Last Done: 01/19/21 19:18 <JORGE Sofia - Last Filed: 01/19/21 18:07> Discharge Date/Time: 01/19/21 19:18 <JORGE Sofia - Last Filed: 01/19/21 18:07>
[2021-01-19] MEDS: iohexoL 350 MG/ML 100 ML INFUS..BTL IV (17:04)
[2021-01-19] MEDS: cefTRIAXone sodium 1 GM in 0.9 % Sodium Chloride 50 ML IV (17:14)
[2021-01-19 17:20] VITALS: BP 198/86; PULSE 90
[2021-01-19 17:23] VITALS: BP 205/91; PULSE 102
[2021-01-19 17:26] VITALS: BP 191/78; PULSE 112
[2021-01-19 17:45] LABS: INTERNATIONAL NORM RATIO 1.1 (0.9-1.1); Prothrombin Time 12.4 SEC (9.9-13.0)
[2021-01-19 17:48] LABS: Partial Thromboplastin Time 35.7 SEC (24.1-38.0)
[2021-01-19 18:00] VITALS: BP 207/100; PULSE 100; RESP 13
[2021-01-19 19:01] VITALS: BP 165/85; PULSE 110; RESP 18; O2SAT 98
--- NOTE | 2021-01-19 19:02 | PC.NURSE ---
client ate along with at bedside. patient offers no complaints at this time. bp 165/85/ neuros intact. Client chavis x 3 with equal and non labored rr. per keara pa hold labetolol IV.
== END 2021-01-19 19:18 | disposition home or self-care (01) ==
PROVIDERS: Physician Assistant; Emergency Provider Emergency Medicine; PCP Internal Medicine
DX: D35.2 Benign neoplasm of pituitary gland (principal); I67.1 Cerebral aneurysm, nonruptured; R42 Dizziness and giddiness; E11.9 Type 2 diabetes mellitus without complications; I10 Essential (primary) hypertension; Z79.899 Other long term (current) drug therapy
CPT/HCPCS: 36415; 70450; 70496; 70498; 71045; 80048; 80076; 81001; 83735; 84484; 85025; 85610; 85730; 87086; 87088; 87186; 93005; 96361; 96365; 96375; 99284; J0696; Q9967